=== PATIENT | female | born 1950 | race Caucasian/White ===

== ENCOUNTER 2020-11-15 09:42 | Emergency (ER) | payer OTHER ==
[~2020-11-15] VITALS: Ht 157.5 cm; Wt 54.4 kg
[2020-11-15 09:52] VITALS: Ht 157.5 cm; Wt 54.4 kg
[2020-11-15 10:48] LABS: BASOPHIL % 0.4 % (0.2-1.3); PLATELET COUNT 167 x10^3mcL (179-408); RED CELL DISTRIBUTION WIDTH 14.3 % (12.3-17.7)
[2020-11-15 10:53] LABS: CALCIUM 9.9 mg/dL (8.5-10.1); CHLORIDE SERUM 102 mmol/L (98-107); CREATININE SERUM 0.7 mg/dL (0.6-1.0); GLUCOSE SERUM 114 mg/dL (74-106); POTASSIUM SERUM 3.8 mmol/L (3.5-5.1); SODIUM SERUM 141 mmol/L (136-145)
[2020-11-15 10:58] LABS: ALKALINE PHOSPHATASE 115 U/L (46-116); ALT/SGPT 90 U/L (14-59); AST/SGOT 37 U/L (15-37); BILIRUBIN TOTAL 0.64 mg/dL (0.20-1.00); TOTAL PROTEIN, SERUM 6.9 g/dL (6.4-8.2)
[2020-11-15 12:04] LABS: microscopic required? YES; urine erythrocyte TRACE (NEGATIVE)
[2020-11-15 18:41] VITALS: BP 134/58
== END 2020-11-15 18:41 | disposition home or self-care (01) ==
LOC: ED 09:42
PROVIDERS: Emergency Medicine
DX: S32.019A Unspecified fracture of first lumbar vertebra, initial encounter for closed fracture (principal); S22.089A Unspecified fracture of T11-T12 vertebra, initial encounter for closed fracture; W18.30XA Fall on same level, unspecified, initial encounter; Y93.89 Activity, other specified; Y92.89 Other specified places as the place of occurrence of the external cause; Y99.8 Other external cause status
CPT/HCPCS: 83880